=== PATIENT | male | born 1930 | race Caucasian/White ===

== ENCOUNTER → 2017-10-15 | Outpatient (CLI) | payer MEDICARE, BC ==
[2015-05-01 10:34] VITALS: BMI 26.5
[~2017-10-15] MED LIST: AMLO-1 PO; AMLO-104 PO; ASP325 PO; ASPI-757 PO; CALC500T42 PO; CALC600T72 PO; CALC625T57 PO; CHOL10005 PO; DOXY-181 PO; FLUN25SP NS; FLUNR ENA; GLUC-198 PO; HCTZ25 PO; LIS20 PO; LISI-353 PO; LOR5 PO; LORA-802 PO; LORA10TA2 PO; MULT-820 PO; NAPR-723 PO; NAPR500T75 PO; OXYC-865 PO; PANT40TA65 PO; PREVPACPT PO; SILD100T59 PO; SIM10 PO; SIMV-42 PO; SIMV-49 PO; SPIR25TA78 PO; SULF-198 PO; TADA5TAB7 PO; TERA5CAP57 PO; VANC1VIA12 IV; [UNRECOGNIZED DRUG - CODE] PO; [UNRECOGNIZED DRUG - REMARK]
[2017-10-15 10:23] LABS: PLATELET COUNT, AUTOMATED 211 K/uL (150-450)
== END ==
LOC: LAB 10:02
PROVIDERS: ATTEND Nurse Practitioner Family
DX: I10 Essential (primary) hypertension (principal); E78.5 Hyperlipidemia, unspecified; R73.01 Impaired fasting glucose
CPT/HCPCS: 36415; 82040; 82247; 82310; 82374; 82435; 82565; 82947; 83036; 84075; 84132; 84155; 84295; 84443; 84450; 84460; 84520; 85025

== ENCOUNTER → 2017-11-11 | Outpatient (CLI) | payer MEDICARE, BC ==
[2015-05-01 10:34] VITALS: BMI 26.5
[2017-11-11 08:49] LABS: PLATELET COUNT, AUTOMATED 206 K/uL (150-450)
--- NOTE | 2017-11-11 09:14 | EKG ---
FACILITY: [facility] - [place] PATIENT NAME: GIORGIO TERESA : [id number] MR: [id number] V: [id number] EXAM DATE: ORDERING PHYSICIAN: SHARON LARA TECHNOLOGIST: Elijah Che Reason : PREOP Blood Pressure : / mmHG Vent. Rate : 067 BPM Atrial Rate : 067 BPM P-R Int : 190 ms QRS Dur : 102 ms QT Int : 436 ms P-R-T Axes : 076 -38 070 degrees QTc Int : 460 ms Sinus rhythm with marked sinus arrhythmia Left axis deviation Septal infarct (cited on or before 11-NOV-2017) No ST-T abnormalities When compared with ECG of 18-DEC-2014 13:26, PVC bigeminy has resolved Confirmed by PARVIZ SAHU ([id number]) on 11/11/2017 12:31:20 PM Referred By: SHARON LARA Confirmed By:PARVIZ SAHU
== END ==
LOC: LAB 08:18
PROVIDERS: ATTEND Orthopaedic Surgery
DX: Z01.812 Encounter for preprocedural laboratory examination (principal); Z01.810 Encounter for preprocedural cardiovascular examination; I49.8 Other specified cardiac arrhythmias; I10 Essential (primary) hypertension; E78.5 Hyperlipidemia, unspecified
CPT/HCPCS: 36415; 82040; 82247; 82310; 82374; 82435; 82565; 82947; 84075; 84132; 84155; 84295; 84450; 84460; 84520; 85025; 93005

== ENCOUNTER 2017-12-16 00:20 | Observation (INO) | payer MEDICARE, BC ==
[~2017-12-16] VITALS: Ht 172.7 cm; Wt 77.8 kg
[2017-12-16] VITALS (14 sets, daily range): BP systolic 114–167; BP diastolic 60–113; Ht 172.7 cm; Wt 77.8 kg
[2017-12-16] MEDS ORDERED: ceFAZolin(*) 2GM/D5W 50ML 50 ML IVPB ONE (06:00)
[2017-12-16] MEDS ORDERED: NORMOSOL R SOLN(*) 1000 ML BAG 1,000 ML IV PRN (06:00)
[2017-12-16] MEDS ORDERED: FAMOTIDINE 20 MG TAB PO ONE (06:00)
[2017-12-16] MEDS ORDERED: LIDOCAINE/SOD BICARB 8.4% SYR ID ONE (06:00)
[2017-12-16] MEDS ORDERED: MIDAZOLAM 2 MG/2 ML VIAL IVP ONE (06:00)
[2017-12-16] MEDS ORDERED: THROMBIN (BOVINE) 20,000 UNIT VIAL ONE (06:18)
[2017-12-16] MEDS ORDERED: LIDOCAINE MPF 1% 5 ML VIAL ONE (08:24)
[2017-12-16] MEDS ORDERED: PROPOFOL EMUL(*) 10MG/ML 20 ML 20 ML ONE (08:24)
[2017-12-16] MEDS ORDERED: ONDANSETRON 4 MG/2 ML VIAL ONE (08:24)
[2017-12-16] MEDS ORDERED: MIDAZOLAM 2 MG/2 ML VIAL ONE (08:24)
[2017-12-16] MEDS ORDERED: ROCURONIUM BROM 10 MG/ML 10 ML ONE (08:24)
[2017-12-16] MEDS ORDERED: DEXAMETHASONE SOD PHOS 10MG/ML ONE (08:24)
[2017-12-16] MEDS ORDERED: fentaNYL CITR 100 MCG/2 ML AMP ONE ×3 (08:24→14:30)
[2017-12-16] MEDS ORDERED: PHENYLEPHRINE 10 MG/1 ML VIAL ONE (08:31)
[2017-12-16] MEDS ORDERED: REMIFENTANIL HCL 1 MG VIAL ONE (09:30)
[2017-12-16] MEDS ORDERED: NS(*) 0.9% 100 ML BAG 100 ML ONE (09:31)
[2017-12-16] MEDS ORDERED: NS 0.9% IRRIGATION 1000ML PLCT IR ONE (13:04)
[2017-12-16] MEDS ORDERED: SUGAMMADEX SOD 200 MG/2 ML SDV ONE (13:07)
[2017-12-16] MEDS ORDERED: ACETAMINOPHEN(*)1000 MG/100 ML 100 ML IVPB ONE (14:01)
[2017-12-16] MEDS ORDERED: diphenhydrAMINE 25 MG CAP PO PRN (14:10)
[2017-12-16] MEDS ORDERED: DIAZEPAM 5 MG TAB PO PRN (14:10)
[2017-12-16] MEDS ORDERED: ACETAMINOPHEN(*)1000 MG/100 ML 100 ML IVPB PRN (14:10)
[2017-12-16] MEDS ORDERED: LR(*) 1000 ML BAG 1,000 ML IV PRN (14:10)
[2017-12-16] MEDS ORDERED: BISACODYL 10 MG SUPP PR PRN (14:10)
[2017-12-16] MEDS ORDERED: oxyCODONE HCL 5 MG CAP PO PRN (14:10)
[2017-12-16] MEDS ORDERED: ACETAMINOPHEN 500 MG TAB PO PRN (14:10)
[2017-12-16] MEDS ORDERED: HYDROmorphone HCL 2 MG/ML SDV IVP PRN (14:10)
[2017-12-16] MEDS ORDERED: ONDANSETRON 4 MG/2 ML VIAL IVP PRN (14:10)
[2017-12-16] MEDS ORDERED: MAGNESIUM HYDROXIDE* 30ML UDCP PO PRN (14:10)
[2017-12-16] MEDS ORDERED: FLUSH 10 ML SYR IVP PRN (14:10)
[2017-12-16] MEDS ORDERED: BENZOCAINE/MENTHOL 1 EACH LOZG PO PRN (14:10)
[2017-12-16] MEDS ORDERED: LABETALOL HCL 100 MG/20ML VIAL ONE (14:29)
[2017-12-16] MEDS ORDERED: SUGAMMADEX SOD 500 MG/5 ML SDV ONE (15:40)
[2017-12-16] MEDS ORDERED: NAPR500T31 PO (16:10)
--- NOTE | 2017-12-16 16:10 | Hospitalist Consultation ---
History of Present Illness Requesting Physician Dr. Diez Reason for Consult Essential hypertension History of Present Illness This patient was admitted for lumbar spine surgery. It is reported that the surgery went well and was without complication. History Problems: (1) Hypertension, benign Status: Chronic (2) Hypercholesterolemia Status: Chronic Home Meds Active Scripts Simvastatin (SIMVASTATIN) 20 Mg Tablet, 1 TAB PO HS, #90 TAB 4 Refills Prov:ERNESTO MOORE APRNP-C 06/04/17 Spironolactone (SPIRONOLACTONE) 25 Mg Tablet, 0.5 TAB PO QAM, #45 TAB 4 Refills Prov:ERNESTO MOORE APRN MAINTENANCE AND ENGINEERING MANAGER-C 07/09/16 Lisinopril/Hydrochlorothiazide (LISINOPRIL-HCTZ 20-12.5 MG TAB) 1 Each Tablet, 0.5 TAB PO QAM, #45 TAB 4 Refills Prov:ERNESTO MOORE APRN [facility] 07/09/16 Discontinued Scripts Doxycycline Hyclate (DOXYCYCLINE HYCLATE) 100 Mg Capsule, 1 CAP PO BID, #20 CAPSULE 0 Refills Prov:ERNESTO MOORE APRN [facility] 10/15/17 Naproxen (NAPROSYN) 500 Mg Tablet, 1 TAB PO BID Y for PAIN, #180 TAB 3 Refills Prov:ERNESTO MOORE APRN MAINTENANCE AND ENGINEERING MANAGER-C 06/04/17 Sildenafil Citrate (VIAGRA) 100 Mg Tablet, 0.5-1 TAB PO QDAY Y for sexual activity, #10 TAB 3 Refills Prov:ERNESTO MOORE APRN MAINTENANCE AND ENGINEERING MANAGER-C 07/08/16 Allergies: Coded Allergies: No Known Drug Allergies (Verified , 02/11/15) Uncoded Allergies: FRUITS WITH STONES (Allergy, Mild, 01/25/07) Patient History: FH: [place] (myocardial infarction) FATHER, , Age:59 Hx Smoking: No Smoking Status: Former Smoker Exposure to Second Hand Smoke?: No When Quit Tobacco?: 1961 Caffeine Intake: Coffee Caffeine/Cups Per Day: 1-1.5 CUPS/DAY Hx Alcohol Use: Yes Hx Substance Use Disorder: No Social Drug Use: Never Review of Systems All Systems Reviewed/Normal: Yes Exam Vital Signs Vital Signs Date Time Temp Pulse Resp B/P (MAP) Pulse Ox O2 Delivery O2 Flow Rate FiO2 12/16/17 15:47 93 Nasal Cannula 2.0 12/16/17 15:41 97.6 70 16 167/91 (116) Neuro: No Gross deficits Cardiovascular: Regular Rate and Rhythm Respiratory: Clear to Auscultation Extremities: No Edema Integumentary: No Cyanosis Assessment and Plan Problems: (1) Hypertension, benign Status: Chronic Assessment & Plan: He is on chronic treatment with lisinopril, hydrochlorothiazide, and spironolactone. The lisinopril and spironolactone have been ordered with hold parameters. The hydrochlorothiazide remains on hold. (2) Hypercholesterolemia Status: Chronic Copies to: SHARON DIEZ MD Venous Thromboembolism Antithrombotics Is Pt On Any Antithrombotics?: No Exam Sepsis Risk: No Definite Risk MALGORZATA ARMANDO DO Dec 16, 2017 16:09
--- NOTE | 2017-12-16 16:37 | RADIOLOGY IMAGING REPORT ---
FACILITY: [facility] - [place] PATIENT NAME: Hao Rogel : 1930 MR: [id number] V: [id number] EXAM DATE: ORDERING PHYSICIAN: SHARON DIEZ TECHNOLOGIST: Location: [facility] [place] Patient: Hao Rogel : 1930 Visit/Account:[id number] Date of Sevice: 12/16/2017 LUMBAR SPINE 1 VIEW Indication: Low back pain. Procedure: Fluoroscopic guidance was provided for Dr. Diez. Fluoroscopy time: 5 seconds Number of images: 1 image of the intraoperative lumbar spine was obtained. Findings: A single lateral intraoperative film of the lumbar spine shows surgical instruments posteri or to the lumbar spine. IMPRESSION: Fluoroscopic guidance during lumbar spine surgery. Report Dictated By: Raza Castro MD at 12/16/2017 4:33 PM Report E-Signed By: Raza Castro MD at 12/16/2017 4:34 PM WSN:[id number]
[2017-12-16] MEDS: ceFAZolin(*) 2GM/D5W 50ML 50 ML IVPB SCH (19:47)
[2017-12-16] MEDS ORDERED: SIMVASTATIN 20 MG TAB PO SCH (21:00)
[2017-12-16] MEDS: APAP/HYDROCODONE 325/5 TAB PO PRN (21:03)
[2017-12-16] MEDS: DOCUSATE SODIUM 100 MG CAP PO SCH (21:03)
[2017-12-17 03:07] VITALS: BP 126/75
[2017-12-17] MEDS: ceFAZolin(*) 2GM/D5W 50ML 50 ML IVPB SCH (04:07)
[2017-12-17] MEDS: APAP/HYDROCODONE 325/5 TAB PO PRN ×2 (04:07→08:43)
--- NOTE | 2017-12-17 06:44 | Hospitalist Progress Note ---
Subjective Progress Notes Subjective This person was admitted for lumbar spine surgery. He had no acute events overnight. Patient Complains of: Cardiovascular: No: Chest Pain Respiratory: No: Shortness of Breath Physical Exam Vital Signs Date Time Temp Pulse Resp B/P (MAP) Pulse Ox O2 Delivery O2 Flow Rate FiO2 12/17/17 03:07 98.6 74 16 126/75 (92) 92 Nasal Cannula 2.0 Cardiovascular: Regular Rate and Rhythm Respiratory: Clear to Auscultation Assessment and Plan Problems: (1) Hypertension, benign Status: Chronic Assessment & Plan: He is on chronic treatment with lisinopril, hydrochlorothiazide, and spironolactone. The lisinopril and spironolactone have been ordered with hold parameters. The hydrochlorothiazide remains on hold. (2) Hypercholesterolemia Status: Chronic Assessment & Plan: He is on chronic treatment with simvastatin. Exam Sepsis Risk: No Definite Risk MALGORZATA ARMANDO DO Dec 17, 2017 06:44
[2017-12-17 07:14] VITALS: BP 124/70
[2017-12-17] MEDS ORDERED: DIAZ-308 PO (08:20)
[2017-12-17] MEDS ORDERED: DOCU240C84 PO (08:21)
[2017-12-17] MEDS ORDERED: HYDR-385 PO (08:21)
[2017-12-17] MEDS: DOCUSATE SODIUM 100 MG CAP PO SCH (08:42)
[2017-12-17 08:44] VITALS: BP 142/71
[2017-12-17] MEDS ORDERED: SPIRONOLACTONE 25 MG TAB PO SCH (09:00)
[2017-12-17] MEDS ORDERED: LISINOPRIL 20 MG TAB PO SCH (09:00)
--- NOTE | 2017-12-17 14:50 | OPERATIVE REPORT 1 ---
EVENT DATE: December 16, 2017 SURGEON: Gadiel Diez MD ANESTHESIOLOGIST: Mau Charles MD ANESTHESIA: General endotracheal anesthesia. LUNG SPLITTER: LOLY Hand PREOPERATIVE DIAGNOSIS Lumbar spinal stenosis with L3-L4 disk herniation and right-sided radiculopathy. POSTOPERATIVE DIAGNOSIS Lumbar spinal stenosis with L3-L4 disk herniation and right-sided radiculopathy. PROCEDURE PERFORMED Right-sided lateral recess decompression L3 to L5 with discectomy of L3-L4. INTRAVENOUS FLUIDS 1600 mL ESTIMATED BLOOD LOSS 100 mL IMPLANTS None. SPECIMENS None. DRAINS None. COMPLICATIONS None. DISPOSITION Post-anesthesia care unit. INDICATIONS FOR SURGERY Mr. Rogel is an 87-year-old gentleman who presented to my clinic with the chief complaint of severe radiating left lower extremity pain, numbness, and tingling in an L4 and an L5 distribution. He had tried physical therapy, injections, and medications with no improvement in symptoms. His physical examination was essentially normal, but his MRI showed severe lateral recess stenosis at the L3- L4 and L4-L5 levels secondary to a combination of facet hypertrophy, ligamentum flavum thickening, and also a large inferiorly extruded L3-L4 disk herniation lying in the lateral recess next to the L4 pedicle. Secondary to ongoing symptoms and failure to improve with nonsurgical treatment, Mr. Rogel was offered and elected to undergo revision lumbar laminectomy with decompression of the left lateral recess and excision of the L3-L4 extruded disk fragment. CONSENT Prior to surgery, I explained in detail to the patient the possible risks of surgery including bleeding, infection, nerve root injury, persistent and/or worsening pain, spinal fluid leak, meningitis, need for further surgery, and other unforeseen medical and surgical complications including , blindness, sexual dysfunction, autonomic nervous system dysfunction, etc. Further discussion was had regarding the revision nature of the procedure, and it is understood that revision surgery results in a higher incidence of complications including infection, dural tear, etc. DESCRIPTION OF PROCEDURE On the date of surgery, the patient was met in the preoperative hold area, and all questions were answered. The operative site was identified and marked by myself. The patient was then brought in good condition to the operating room, and after succumbing to anesthesia, he was placed in a prone position on a Mihir table. All bony protuberances and soft tissues were well padded in the standard fashion. Care was taken to maintain appropriate perfusion pressures during anesthesia. Antibiotics were administered preoperatively according to the appropriate timing schedule. At the conclusion of the procedure, the sponge and needle counts were correct times two. A final timeout was undertaken by members of the operating team to confirm correct patient, correct levels, and correct surgery. An incision was then made in the skin utilizing the old surgical scar. Sharp dissection was carried down until we could identify the facet joints and the previously made laminectomy defect. We then directed our dissection out laterally to identify the pars interarticularis and the facet joints of L2-L3, L3-L4, and L4-L5. Once this was accomplished, a lateral radiograph was taken to confirm appropriate spinal levels. Electrocautery was used to clear off the remaining posterior elements, and then on the left side, an angled curette was used create an interval between the scar tissue overlying the dura and the medial border of the pars interarticularis and the facet at the L3-L4 and L4-L5 levels. Minimal bone was removed using a Kerrison punch in order to expose lateral dura and the L3, L4, and L5 traversing nerve roots. The Buchanan elevator was used prior to the use of the Kerrison punch to assure that all dural adhesions were freed up from surrounding bone and soft tissues. A thorough lateral recess decompression was performed using 3.0 and 4.0 Kerrison rongeurs, and the nerve roots again were identified and traced out around the respective pedicles. A Jimenez probe was used to palpate out through the foramina, and these were found to be widely patent. Any areas that seemed tight were decompressed with the use of a Kerrison rongeur. The shoulders of the nerve root were mobilized, exposing the disk spaces, and at the L3-L4 level , a very large, contained disk herniation as well as inferiorly extruded fragments were found and removed using a combination of pituitary rongeurs and Kerrison punches. Hemostasis was then obtained utilizing FloSeal and surgical patties, and the wound was irrigated with 2 L of sterile saline solution. The final decompression was once again checked and found to be excellent. The wound was then closed in layers using interrupted sutures for the deep fascia, inverted interrupted sutures for the superficial fascia, and then a running subcuticular skin stitch. Sponge and needle counts were correct times two. POSTOPERATIVE CARE PLAN Mr. Rogel will remain in the hospital overnight. Once he is tolerating p.o., voiding spontaneously, and has good pain control, he will be discharged home with instructions to follow up in two weeks' time. EMMIE
== END 2017-12-17 08:12 | disposition home or self-care (01) ==
LOC: OR 00:20 → MED 15:30
PROVIDERS: ADMIT Orthopaedic Surgery; ATTEND Orthopaedic Surgery
DX: M48.061 Spinal stenosis, lumbar region without neurogenic claudication (principal); M51.16 Intervertebral disc disorders with radiculopathy, lumbar region
CPT/HCPCS: 36415; 63030; 63035; 72020; 86850; 86900; 86901; 97161; A9270; G0378; J0131; J1100; J2001; J2370; J2405; J2704; J3010; J3490; J7050; J0690; J2250

== ENCOUNTER → 2018-04-15 | Outpatient (CLI) | payer MEDICARE, BC ==
[2017-12-16 18:09] VITALS: BMI 26.0
[~2018-04-15] MED LIST changes: +ACET-2031 PO; +DIAZ-308 PO; +DOCU240C84 PO; +HYDR-385 PO; +NAPR500T31 PO; -SPIR25TA78 PO; +SPIR25TA80 PO
[2018-04-15 10:13] LABS: PLATELET COUNT, AUTOMATED 226 K/uL (150-450)
== END ==
LOC: LAB 08:21
PROVIDERS: ATTEND Nurse Practitioner Family
DX: Z12.5 Encounter for screening for malignant neoplasm of prostate (principal); I10 Essential (primary) hypertension; R73.09 Other abnormal glucose; E78.00 Pure hypercholesterolemia, unspecified
CPT/HCPCS: 36415; 83036; 84443; 85025; G0103; 82040; 82247; 82310; 82374; 82435; 82465; 82565; 82947; 83718; 84075; 84132; 84153; 84155; 84295; 84450; 84460; 84478; 84520